=== PATIENT | male | born 1995 | race African-American/Black ===

== ENCOUNTER 2018-10-14 16:23 | Emergency (ER) | payer OTHER ==
[2018-10-14 16:35] VITALS: BP 120/70; PULSE 83; TEMP 98.1; BMI 30.4
--- NOTE | 2018-10-14 16:37 | PDOC ---
Rapid Medical Evaluation Chief Complaint: Pain, Acute Medical Evaluation: Allergies Allergy/AdvReac Type Severity Reaction Status Date / Time No Known Allergies Allergy Verified 10/24/15 20:46 10/14/18 16:32 I have performed a brief in-person evaluation of this patient. The patient presents with a chief complaint of: RLQ started this AM, No N/V - admits to drinking hard liquor daily- had alcoholic gastric ulcers 2 years ago - states last drink 2 days ago Pertinent physical exam findings: Abd soft with no rebound I have ordered the following: labs/ Ua/ tox The patient will proceed to the ED for further evaluation. 10/14/18 16:37 Discharge Disposition - Diagnosis Abdominal pain - Referrals - Patient Instructions - Post Discharge Activity
--- NOTE | 2018-10-14 17:52 | PDOC ---
History of Present Illness - General Chief Complaint: Pain, Acute Stated Complaint: ABD PAIN Time Seen by Provider: 10/14/18 17:02 - History of Present Illness Initial Comments: 10/14/18 17:45 CHIEF COMPLAINT: RLQ pain HISTORY OF PRESENT ILLNESS: 23 yo M presents to ED with RLQ pain since this morning. Patient states he's had on and off stomach pain x few months but this morning it was worse. Patient does admit to drinking heavily almost daily, last drink two days ago. He describes the pain as tearing but "it's not there anymore. I've been having these stomach pains in the morning for like 1-2 years now, but today it was a lot worse." Patient reports last BM was just LAS[employer]TER. Patient denies any nausea, vomiting, fever, rectal bleeding. Does not have PCP. No recent travel or sick contacts. PAST MEDICAL HISTORY: Denies past medical history FAMILY HISTORY: Denies SOCIAL HISTORY: Drinks daily, "1 bottle of Shanell every other day, on the weekends I'll have like 1-2 bottles ." Denies cigarette, illicit drug use. SURGICAL HISTORY: R orchiectomy ALLERGIES: No known drug allergies REVIEW OF SYSTEMS General/Constitutional: Denies fever or chills. Denies weakness, weight change. HEENT: Denies change in vision. Denies ear pain or discharge. Denies sore throat. Cardiovascular: Denies chest pain or shortness of breath. Respiratory: Denies cough, wheezing, or hemoptysis. Gastrointestinal: Abdominal pain this morning, now resolved. Denies nausea, vomiting, diarrhea or constipation. Denies rectal bleeding. Genitourinary: Denies dysuria, frequency, or change in urination. Musculoskeletal: Denies joint or muscle swelling or pain. Denies neck or back pain. Skin: Denies rash or easy bruising. PHYSICAL EXAM General Appearance: Well-appearing, appropriately dressed. No apparent distress , no intoxication. HEENT: EOMI, PERRLA, normal ENT inspection, normal voice, TMs normal, pharynx normal. No conjunctival pallor. No photophobia, scleral icterus. Neck: Supple. Trachea midline. No tenderness, rigidity, carotid bruit, stridor , lymphadenopathy, or thyromegaly. Respiratory/Chest: Lungs CTAB. No shortness of breath, chest tenderness, respiratory distress, accessory muscle use. No crackles, rales, rhonchi, stridor , wheezing, dullness Cardiovascular: RRR. S1, S2. No JVD, murmur, bradycardia, tachycardia. Vascular Pulses: Dorsalis-Pedis (R): 2+, Dorsalis-Pedis (L): 2+ Gastrointestinal/Abdominal: Normal bowel sounds. Abdomen soft, non-distended. No tenderness or rebound tenderness. No organomegaly, pulsatile mass, guarding , hernia, hepatomegaly, splenomegaly. Lymphatic: No adenopathy, tenderness. Musculoskeletal/Extremities: Normal inspection. FROM of all extremities, normal capillary refill. Pelvis Stable. No CVA tenderness. No tenderness to extremities, pedal edema, swelling, erythema or deformity. Integumentary: Appropriate color, dry, warm. No cyanosis, erythema, jaundice or rash Neurologic: braid pattern setter II-XII intact. Fully oriented, alert. Appropriate mood/affect. Motor strength 5/5. No appreciable EOM palsy, facial droop or sensory deficit. Past History - Past Medical History Allergies/Adverse Reactions: Allergies Allergy/AdvReac Type Severity Reaction Status Date / Time No Known Allergies Allergy Verified 10/24/15 20:46 Home Medications: Ambulatory Orders Nitrofurantoin Monohyd/M-Cryst [Macrobid -] 100 mg PO BID #14 capsule 10/14/18 Cardiac Disorders: (HEART MURMUR) - Suicide/Smoking/Psychosocial Hx Smoking History: Never smoked Have you smoked in the past 12 months: No Number of Cigarettes Smoked Daily: 2 Information on smoking cessation initiated: No 'Breaking Loose' booklet given: 11/12/14 Hx Alcohol Use: No Drug/Substance Use Hx: No Substance Use Type: None *Physical Exam - Vital Signs Last Vital Signs Temp Pulse Resp BP Pulse Ox 98.1 F 83 18 120/70 98 10/14/18 16:32 10/14/18 16:32 10/14/18 16:32 10/14/18 16:32 10/14/18 16:32 ED Treatment Course - LABORATORY CBC & Chemistry Diagram: 10/14/18 18:05 10/14/18 18:05 Medical Decision Making - Medical Decision Making 10/14/18 17:53 23 yo M presents to ED with RLQ pain since this morning. -labs -UA, utox 10/14/18 19:26 Labs hemolyzed, pending repeat CMP. Patient states he wants to go home now as his symptoms have resolved. Pt with 21 WBC on UA, will rx abx for UTI. Advised patient to take medication as prescribed. Advised patient of signs and symptoms for return to ED. Patient verbalized understanding and agrees to plan. *DC/Admit/Observation/Transfer Diagnosis at time of Disposition: Abdominal pain Qualifiers: Abdominal location: right lower quadrant Qualified Code(s): R10.31 - Right lower quadrant pain Urinary tract infection Qualifiers: Urinary tract infection type: acute cystitis Hematuria presence: without hematuria Qualified Code(s): N30.00 - Acute cystitis without hematuria - Discharge Dispostion Disposition: HOME Condition at time of disposition: Stable Decision to Admit order: No - Prescriptions Prescriptions: Nitrofurantoin Monohyd/M-Cryst [Macrobid -] 100 mg PO BID #14 capsule - Referrals - Patient Instructions Printed Discharge Instructions: DI for Urinary Tract Infection (UTI) Additional Instructions: Please take medications as prescribed. Return to the emergency department immediately with ANY new, persistent or worsening symptoms. - Post Discharge Activity
[2018-10-14 18:30] LABS: BASO % 0.6 % (0-2.0); EOS % 0.7 % (0-4.5); HEMATOCRIT 44.7 % (35.4-49); HEMOGLOBIN 14.7 GM/dL (11.7-16.9); LYMPH % 32.7 % (8-40); MCH 28.3 pg (25.7-33.7); MCHC 32.9 g/dl (32.0-35.9); MEAN PLT VOLUME 8.4 fl (7.5-11.1); MONO % 8.2 % (3.8-10.2); NEUT % 57.8 % (42.8-82.8); PLATELET COUNT 249 K/MM3 (134-434); RBC 5.19 M/mm3 (4.00-5.60); RDW 13.2 % (11.9-15.9)
[2018-10-14 18:31] LABS: EPI CELLS 2.2 /HPF (0-5/HPF); HYALINE CASTS 5 /lpf (0-8); URINE APPEARANCE CLEAR; URINE BACTERIA 4.2 /hpf (NEGATIVE); URINE BILIRUBIN NEGATIVE (NEGATIVE); URINE COLOR YELLOW; URINE GLUCOSE (UA) NEGATIVE (NEGATIVE); URINE KETONE NEGATIVE (NEGATIVE); URINE LEUK ESTERASE 1+ (NEGATIVE); URINE NITRITE NEGATIVE (NEGATIVE); URINE PROTEIN NEGATIVE (NEGATIVE); URINE RBC 1 /hpf (0-4); URINE UROBILINOGEN 0.2 mg/dL (0.2-1.0); URINE WBC 21 /hpf (0-5)
[2018-10-14 18:51] LABS: COCAINE, UR NEGATIVE ng/ml (CUTOFF=300); METHADONE, UR NEGATIVE ng/ml (CUTOFF=300); OPIATES, URI NEGATIVE ng/ml (CUTOFF=300); PHENCYCLIDINE,URINE NEGATIVE ng/ml (CUTOFF=25); URINE AMPHETAMINES NEGATIVE ng/ml (CUTOFF=500); URINE BARBITURATES NEGATIVE ng/ml (CUTOFF=200); URINE BENZODIAZEPINES NEGATIVE ng/ml (CUTOFF=200)
== END 2018-10-14 19:35 | disposition home or self-care (01) ==
LOC: JER 16:23
DX: N30.00 Acute cystitis without hematuria (principal); R10.31 Right lower quadrant pain; R01.1 Cardiac murmur, unspecified
CPT/HCPCS: 36415; 80307; 81003; 85025; 99283-25

== ENCOUNTER 2020-06-04 01:15 | Inpatient (IN) | payer OTHER ==
[2020-06-04] MEDS ORDERED: MAG HYDROX/AL HYDROX/SIMETH 30 ML UNIT-DOSE CUP PO ONE (01:25)
[2020-06-04] MEDS ORDERED: MAG HYDROX/AL HYDROX/SIMETH -MYLANTA- ORAL SUSPENSION PO ONE (01:47)
[2020-06-04] MEDS ORDERED: FAMOTIDINE 20 MG/50 ML IVPB 20 MG/50 ML MG IVPB ONE ×2 (01:47→01:52)
[2020-06-04] MEDS ORDERED: MAG HYDROX/AL HYDROX/SIMETH 30 ML UNIT-DOSE CUP ONE (01:52)
[2020-06-04] MEDS ORDERED: SODIUM CHLORIDE 1,000 ML IV STA (01:58)
[2020-06-04 02:01] LABS: BASO % 0.9 % (0-2.0); HEMATOCRIT 42.3 % (35.4-49); HEMOGLOBIN 14.2 GM/dL (11.7-16.9); LYMPH % 29.8 % (8-40); MCH 29.3 pg (25.7-33.7); MCHC 33.6 g/dl (32.0-35.9); MEAN CELL VOLUME 87.2 fl (80-96); MEAN PLT VOLUME 8.4 fl (7.5-11.1); MONO % 8.7 % (3.8-10.2); NEUT % 59.6 % (42.8-82.8); PLATELET COUNT 243 K/MM3 (134-434); RBC 4.85 M/mm3 (4.00-5.60); RDW 13.7 % (11.9-15.9); WHITE BLOOD COUNT 10.8 K/mm3 (4.0-10.0)
[2020-06-04 02:25] LABS: CHLORIDE 101 mmol/L (98-107); SODIUM 137 mmol/L (136-145)
[2020-06-04 02:27] LABS: CALCIUM 9.6 mg/dL (8.5-10.1)
[2020-06-04 02:28] LABS: ANION GAP 6 MMOL/L (8-16); BLOOD UREA NITROGEN 17.3 mg/dL (7-18); CO2 30 mmol/L (21-32); GLUCOSE,RANDOM 92 mg/dL (74-106); LIPASE 71 U/L (73-393)
[2020-06-04 02:32] LABS: BILIRUBIN,TOTAL 0.4 mg/dL (0.2-1); CREATININE 1.4 mg/dL (0.55-1.3); SGOT/AST 47 U/L (15-37); SGPT/ALT 126 U/L (13-61); TOT PROT 7.9 g/dl (6.4-8.2)
[2020-06-04 02:34] LABS: ALK PHOS 72 U/L (45-117)
[2020-06-04 02:45] LABS: PH,URINE 6.5 (5.0-8.0); URINE APPEARANCE CLEAR; URINE BILIRUBIN NEGATIVE (NEGATIVE); URINE COLOR YELLOW; URINE GLUCOSE (UA) NEGATIVE (NEGATIVE); URINE KETONE NEGATIVE (NEGATIVE); URINE LEUK ESTERASE NEGATIVE (NEGATIVE); URINE NITRITE NEGATIVE (NEGATIVE); URINE PROTEIN NEGATIVE (NEGATIVE)
[2020-06-04 02:55] LABS: SYPHILIS W/ RPR CONF NON-REACTIVE (NONREACTIVE)
[2020-06-04 03:23] LABS: HIV INTERPRETATION NEGATIVE (NEGATIVE)
[2020-06-04] MEDS ORDERED: CEFTRIAXONE 1,000 MG in DEXTROSE 5%-WATER - 50 ML IVPB ONE (03:58)
[2020-06-04] MEDS ORDERED: cefTRIAXone SODIUM 1 GM VIAL ONE (04:04)
[2020-06-04] MEDS ORDERED: traMADol HCL 50 MG TABLET PO PRN ×2 (05:44→15:26)
[2020-06-04] MEDS ORDERED: SODIUM CHLORIDE 1,000 ML IV SCH (05:45)
[2020-06-04 11:58] VITALS: BMI 31.1
[2020-06-04] MEDS ORDERED: MIDAZOLAM HCL 2 MG/2 ML SINGLE DOSE VIAL ONE (13:29)
[2020-06-04] MEDS ORDERED: LIDOCAINE HCL/PF 2% SDV 5ML VIAL ONE (13:30)
[2020-06-04] MEDS ORDERED: PROPOFOL 20 ML ONE ×3 (13:30)
[2020-06-04] MEDS ORDERED: SUCCINYLCHOLINE CHLORIDE 200 MG/10 ML SYRINGE ONE (13:33)
[2020-06-04] MEDS ORDERED: ROCURONIUM BROMIDE 50 MG/5 ML SYRINGE ONE (13:33)
[2020-06-04] MEDS ORDERED: GLYCOPYRROLATE 0.2 MG/1 ML VIAL ONE ×3 (13:54→14:33)
[2020-06-04] MEDS ORDERED: BUPIVACAINE HCL 100 ML ONE (13:55)
[2020-06-04] MEDS ORDERED: FOLIC ACID INJECTION - 1 MG, THIAMINE HCL 100 MG, MULTIVIT INJECTION ADULT 10 ML in SOD... IVPB ONE ×2 (14:00→16:15)
[2020-06-04] MEDS ORDERED: DEXAMETHASONE SOD PHOSPHATE 4 MG/1 ML VIAL ONE (14:06)
[2020-06-04] MEDS ORDERED: BUPIVACAINE HCL/PF 0.5% (5 MG/ML) 30 ML VIAL IJ ONE (14:15)
[2020-06-04] MEDS ORDERED: NEOSTIGMINE METHYLSULFATE 0.5 MG/ML - 10 ML MDV ONE (14:31)
[2020-06-04] MEDS ORDERED: KETOROLAC TROMETHAMINE 30 MG/1 ML VIAL ONE (14:38)
[2020-06-04] MEDS ORDERED: LACTATED RINGERS SOLUTION 1,000 ML IV SCH ×2 (15:00→15:26)
[2020-06-04] MEDS ORDERED: PROMETHAZINE HCL 25 MG/1 ML VIAL IVPUSH PRN (15:00)
[2020-06-04] MEDS ORDERED: ONDANSETRON 4 MG/2 ML VIAL IVPUSH PRN ×2 (15:00→15:26)
[2020-06-04] MEDS ORDERED: ACETAMINOPHEN 1000 MG/100 ML VIAL (NON FORMULARY) IVPB ONE (18:00)
[2020-06-04] MEDS: HEPARIN NA (PORCINE) 5,000 UNITS/ML 1ML VIAL SQ SCH (21:05)
[2020-06-04] MEDS: ACETAMINOPHEN 325 MG TABLET (FP) PO SCH (23:58)
[2020-06-05] MEDS: ACETAMINOPHEN 325 MG TABLET (FP) PO SCH (05:46)
[2020-06-05 08:15] LABS: HEMATOCRIT 38.9 % (35.4-49); HEMOGLOBIN 12.6 GM/dL (11.7-16.9); MCH 28.8 pg (25.7-33.7); MCHC 32.3 g/dl (32.0-35.9); MEAN CELL VOLUME 88.9 fl (80-96); MEAN PLT VOLUME 8.8 fl (7.5-11.1); PLATELET COUNT 242 K/MM3 (134-434); RBC 4.38 M/mm3 (4.00-5.60); RDW 13.6 % (11.9-15.9); WHITE BLOOD COUNT 12.5 K/mm3 (4.0-10.0)
[2020-06-05 08:42] LABS: CALCIUM 9.2 mg/dL (8.5-10.1)
[2020-06-05 08:43] LABS: BLOOD UREA NITROGEN 10.4 mg/dL (7-18)
[2020-06-05 08:44] LABS: ALBUMIN 3.4 g/dl (3.4-5.0); MAGNESIUM 2.1 mg/dL (1.8-2.4)
[2020-06-05 08:45] LABS: PHOSPHOROUS 3.9 mg/dL (2.5-4.9)
[2020-06-05 08:48] LABS: BILIRUBIN,TOTAL 0.4 mg/dL (0.2-1)
[2020-06-05] MEDS ORDERED: FOLIC ACID 1 MG TABLET (FP) PO SCH ×2 (10:00)
[2020-06-05] MEDS ORDERED: THIAMINE HCL 100 MG TABLET (FP) PO SCH ×2 (10:00)
[2020-06-05] MEDS ORDERED: PT OWN MED DRAWER 7, Y5N ONE (10:14)
[2020-06-05] MEDS: HEPARIN NA (PORCINE) 5,000 UNITS/ML 1ML VIAL SQ SCH (10:23)
[2020-06-05 11:52] VITALS: BP 125/71; PULSE 72; TEMP 98
== END 2020-06-05 12:17 | disposition home or self-care (01) | DRG 225 ==
LOC: JER 01:15 → JERBED 03:59 → J7W 11:19
PROVIDERS: ADMIT Hospitalist; ATTEND Nurse Practitioner Family
PROC: 0DTJ4ZZ Resection of Appendix, Percutaneous Endoscopic Approach (ICD-10-PCS; principal; 2020-06-04 13:17)
DX: K35.80 Unspecified acute appendicitis (principal); F10.10 Alcohol abuse, uncomplicated; R74.01 Elevation of levels of liver transaminase levels; E66.3 Overweight; Z68.31 Body mass index [BMI] 31.0-31.9, adult; R74.8 Abnormal levels of other serum enzymes; N17.9 Acute kidney failure, unspecified; K76.0 Fatty (change of) liver, not elsewhere classified; R10.31 Right lower quadrant pain
CPT/HCPCS: 36415; 74177-TC; 80053; 80074; 80307; 81003; 82436; 82565; 82962; 83690; 83735; 83935; 84100; 84133; 84300; 85025; 85027; 86780; 86850; 86900; 86901; 87389; 87491; 87591; 88304-TC; 93005; 93010; 94760; 99285-25; C9803; J0131; J1644; Q9967; U0003

== ENCOUNTER 2021-04-24 00:04 | Emergency (ER) | payer OTHER ==
[2021-04-24 01:35] VITALS: BP 137/76; PULSE 97; TEMP 98.6; BMI 32.3
== END 2021-04-24 03:39 | disposition home or self-care (01) ==
LOC: JER 00:04
DX: R10.9 Unspecified abdominal pain (principal)
CPT/HCPCS: 99283-25

== ENCOUNTER 2021-05-15 10:35 | Emergency (ER) | payer OTHER ==
[2021-05-15 10:48] VITALS: BP 131/83; PULSE 85; TEMP 98; BMI 32.1
[2021-05-15] MEDS ORDERED: ACETAMINOPHEN 1000 MG/100 ML BAG IVPB ONE (11:13)
[2021-05-15] MEDS ORDERED: SODIUM CHLORIDE 0.9% 1000 ML INFUS.BAG IV ONE (11:13)
[2021-05-15] MEDS ORDERED: ACETAMINOPHEN INJECTION 100 ML IVPB ONE (11:29)
[2021-05-15 12:08] LABS: BASO % 0.5 % (0-2.0); EOS % 1.2 % (0-4.5); HEMATOCRIT 41.7 % (35.4-49); HEMOGLOBIN 13.9 GM/dL (11.7-16.9); LYMPH % 35.9 % (8-40); MCH 28.1 pg (25.7-33.7); MCHC 33.2 g/dl (32.0-35.9); MEAN CELL VOLUME 84.7 fl (80-96); MEAN PLT VOLUME 8.3 fl (7.5-11.1); MONO % 7.5 % (3.8-10.2); NEUT % 54.9 % (42.8-82.8); PLATELET COUNT 222 10^3/uL (134-434); RBC 4.92 M/mm3 (4.00-5.60); RDW 13.5 % (11.9-15.9); WHITE BLOOD COUNT 6.4 K/mm3 (4.0-10.0)
[2021-05-15 13:48] LABS: BLOOD UREA NITROGEN 18.8 mg/dL (7-18); CALCIUM 9.8 mg/dL (8.5-10.1)
[2021-05-15 13:51] LABS: CREATININE 1.2 mg/dL (0.55-1.3)
[2021-05-15 13:52] LABS: BILIRUBIN,TOTAL 0.4 mg/dL (0.2-1); TOT PROT 7.9 g/dl (6.4-8.2)
== END 2021-05-15 14:34 | disposition home or self-care (01) ==
LOC: JER 10:35
PROC: 3E033GC Introduction of Other Therapeutic Substance into Peripheral Vein, Percutaneous Approach (ICD-10-PCS; principal; 2021-05-15)
DX: R10.31 Right lower quadrant pain (principal)
CPT/HCPCS: 36415; 74176-TC; 80053; 85025; 96374; 99285-25

== ENCOUNTER 2022-01-31 14:45 | Emergency (ER) | payer OTHER ==
[2022-01-31 15:00] VITALS: BP 150/86; PULSE 95; RESP 18; TEMP 98.9; BMI 31.5
[2022-01-31] MEDS ORDERED: SILVER SULFADIAZINE 1% TOP CREAM 50 GM JAR TP ONE (15:30)
[2022-01-31] MEDS ORDERED: IBUPROFEN 600 MG TABLET (FP) PO ONE ×2 (15:30→15:31)
[2022-02-01] MEDS ORDERED: SILVER SULFADIAZINE 1% TOP CREAM 400 GM JAR TP ONE ×2 (15:29)
== END 2022-01-31 16:01 | disposition home or self-care (01) ==
LOC: JERFT 14:45 → JER 14:45 → JERFT 16:01
DX: T25.321A Burn of third degree of right foot, initial encounter (principal); X11.8XXA Contact with other hot tap-water, initial encounter
CPT/HCPCS: 99283-25

== ENCOUNTER 2022-08-01 16:35 | Emergency (ER) | payer OTHER ==
[2022-08-01 16:43] VITALS: BP 140/87; PULSE 89; TEMP 97.9; BMI 30.4
[2022-08-01] MEDS ORDERED: ALBUTEROL SO4 2.5/IPRATROPIUM 0.5 INH SOL 3 ML VIAL.NEB. NEB SCH ×2 (17:30→18:45)
[2022-08-01 18:10] LABS: BASO % 0.8 % (0-2.0); EOS % 0.7 % (0-4.5); HEMATOCRIT 43.5 % (35.4-49); HEMOGLOBIN 14.6 GM/dL (11.7-16.9); LYMPH % 31.4 % (8-40); MCH 28.1 pg (25.7-33.7); MCHC 33.5 g/dl (32.0-35.9); MEAN PLT VOLUME 8.3 fl (7.5-11.1); MONO % 8.2 % (3.8-10.2); NEUT % 58.9 % (42.8-82.8); PLATELET COUNT 289 10^3/uL (134-434); RBC 5.18 M/mm3 (4.00-5.60); RDW 15.1 % (11.9-15.9); WHITE BLOOD COUNT 8.3 K/mm3 (4.0-10.0)
[2022-08-01 18:31] LABS: POTASSIUM 4.1 mmol/L (3.5-5.1)
[2022-08-01 18:33] LABS: ALBUMIN 4.3 g/dl (3.4-5.0); BLOOD UREA NITROGEN 9.4 mg/dL (7-18); CALCIUM 9.6 mg/dL (8.5-10.1)
[2022-08-01 18:37] LABS: BILIRUBIN,TOTAL 0.4 mg/dL (0.2-1); TOT PROT 8.3 g/dl (6.4-8.2)
[2022-08-01] MEDS ORDERED: ALBUTEROL SO4 2.5/IPRATROPIUM 0.5 INH SOL 3 ML VIAL.NEB. NEB ONE (18:45)
[2022-08-01 19:37] VITALS: RESP 18
== END 2022-08-01 19:37 | disposition home or self-care (01) ==
LOC: JER 16:35
DX: J98.01 Acute bronchospasm (principal); K76.0 Fatty (change of) liver, not elsewhere classified; R74.01 Elevation of levels of liver transaminase levels
CPT/HCPCS: 0241U-QW; 36415; 71046-TC-FY; 76705-TC; 80053; 83690; 85025; 85379; 93005; 93010; 99285-25